=== PATIENT | female | born 1990 | race Caucasian/White ===

== ENCOUNTER → 2020-08-30 | Outpatient (CLI) | payer OTHER ==
--- NOTE | 2020-08-30 16:09 | REP ---
INDICATION: SECONDARY OLIGOMENORRHEA. COMPARISON: None. TECHNIQUE: Transabdominal scanning performed. FINDINGS: Uterine dimensions are 6 x 5 x 3.0 x 4.4 cm. Endometrial echo is 5 mm in AP dimension and centrally placed. The bladder measures 10.5 x 5.1 x 10.1cm. The right ovary has dimensions of 2.2 x 2.083.1 cm. The left ovary dimensions are 2.5 x 2.1 x 3.5 cm. There is no adnexal mass identified. No free fluid is seen in the cul-de-sac. IMPRESSION: Negative pelvic ultrasound. <Electronically signed by Paul Ortiz > 08/30/20 [id number]
== END ==
LOC: M RAD 15:16
PROVIDERS: ATTEND Nurse Practitioner Family
DX: N91.4 Secondary oligomenorrhea (principal)

== ENCOUNTER 2022-05-12 06:10 | Emergency (ER) | payer OTHER ==
[~2022-05-12] VITALS: Ht 160 cm; Wt 79.0 kg
[2022-05-12] MEDS ORDERED: ZOLO50TA PO (06:24)
[2022-05-12] MEDS ORDERED: ALBU0.63 NEB (06:24)
[2022-05-12] MEDS ORDERED: LEVAINH INH (06:24)
[2022-05-12] MEDS ORDERED: LEVOTAB10 PO (06:24)
[2022-05-12] MEDS ORDERED: ACETAMINOPHEN 500 MG TAB PO ONE (08:00)
[2022-05-12] MEDS ORDERED: NS 1,000 ML IV ONE (08:00)
[2022-05-12] MEDS ORDERED: ONDANSETRON 4MG 2ML VIAL IV ONE (09:00)
[2022-05-12 09:12] LABS: BASO % 0.4 % (0.0-1.0); EOS # 0.2 10^3/uL (0.0-0.5); EOS % 2.6 % (0.0-3.0); HEMATOCRIT 39.9 % (36.0-47.0); HEMOGLOBIN 13.4 g/dl (12.0-15.5); LYMPH # 2.3 10^3/uL (1.5-5.0); LYMPH % 31.8 % (24.0-44.0); MEAN CORPUSCULAR HEMOGLOBIN 30.5 pg (27.0-33.0); MEAN CORPUSCULAR HGB CONC 33.6 g/dl (32.0-36.5); MEAN CORPUSCULAR VOLUME 90.9 fl (80.0-96.0); MONO # 0.5 10^3/uL (0.0-0.8); NEUTROPHILS # 4.2 10^3/uL (1.5-8.5); NEUTROPHILS % 57.7 % (36.0-66.0); PLATELET COUNT, AUTOMATED 388 10^3/uL (150-450); RED BLOOD COUNT 4.39 10^6/uL (4.00-5.40); WHITE BLOOD COUNT 7.3 10^3/uL (4.0-10.0)
[2022-05-12 09:29] LABS: ALBUMIN 4.4 G/DL (3.2-5.2); ALKALINE PHOSPHATASE 84 U/L (46-116); ALT/SGPT 24 U/L (7.0-40); AST/SGOT 34 U/L (<34); BILIRUBIN,TOTAL 0.4 MG/DL (0.3-1.2); BLOOD UREA NITROGEN 12 MG/DL (9-23); CALCIUM LEVEL 9.6 MG/DL (8.5-10.1); CARBON DIOXIDE LEVEL 23 MMOL/L (20-31); CHLORIDE LEVEL 107 MMOL/L (98-107); CREATININE FOR GFR 0.76 MG/DL (0.55-1.30); GLOMERULAR FILTRATION RATE > 60.0 (>60); GLUCOSE, FASTING 83 MG/DL (60-100); POTASSIUM SERUM 4.7 MMOL/L (3.5-5.1); SODIUM LEVEL 139 MMOL/L (136-145); TOTAL PROTEIN 8.2 G/DL (5.7-8.2)
[2022-05-12] MEDS ORDERED: MECLIZINE 25 MG TABLET PO ONE (11:00)
[2022-05-12 11:20] LABS: CK-MB VALUE MASS < 1.0 NG/ML (<3.6)
[2022-05-12 11:27] LABS: CPK CREATINE PHOSPHOKINASE 81 U/L (34-145); MB/CK RELATIVE INDEX 1.23 (< OR =4)
[2022-05-12 11:42] LABS: APPEARANCE, URINE MANUAL CLEAR (CLEAR); COLOR, URINE MANUAL LT YELLOW (YELLOW)
[2022-05-12 11:43] LABS: BILIRUBIN, URINE MANUAL NEGATIVE (NEGATIVE); BLOOD URINE MANUAL NEGATIVE (NEGATIVE); GLUCOSE, URINE (UA) MANUAL NEGATIVE (NEGATIVE); KETONE, URINE MANUAL NEGATIVE (NEGATIVE); LEUKOCYTE ESTERASE, URINE MAN NEGATIVE (NEGATIVE); NITRITE, URINE MANUAL NEGATIVE (NEGATIVE); PROTEIN, URINE MANUAL NEGATIVE (NEGATIVE); UROBILINOGEN, URINE MANUAL NORMAL (NORMAL)
[2022-05-12] MEDS ORDERED: TOPIRAMATE (TopAMAX) 25 MG TAB PO ONE (12:45)
[2022-05-12 13:36] VITALS: BP 132/79
[2022-05-12 13:51] LABS: RSV AMPLIFICATION NEGATIVE (NEGATIVE)
[2022-05-12] MEDS ORDERED: TOPI25TA10 PO (14:25)
== END 2022-05-12 14:44 | disposition home or self-care (01) ==
LOC: M ED 06:10
DX: F07.81 Postconcussional syndrome (principal); S16.1XXA Strain of muscle, fascia and tendon at neck level, initial encounter; S00.83XA Contusion of other part of head, initial encounter; S00.33XA Contusion of nose, initial encounter; Y04.8XXA Assault by other bodily force, initial encounter; Y92.219 Unspecified school as the place of occurrence of the external cause; G43.909 Migraine, unspecified, not intractable, without status migrainosus; R42 Dizziness and giddiness; Z79.51 Long term (current) use of inhaled steroids; Z79.899 Other long term (current) drug therapy
CPT/HCPCS: 70450; 70486; 80053; 81002; 82550; 82553; 84484; 84702; 85025; 87631; 93005; 93041; 96361; 96374; 99284; J2405